=== PATIENT | male | born 1980 | race Caucasian/White ===

== ENCOUNTER 2018-06-09 22:39 | Emergency (ER) | payer OTHER ==
[~2018-06-09] VITALS: BP_SYST 141; Ht 175.3 cm; Wt 72.6 kg
[2018-06-09 22:40] VITALS: BP_SYST 140
[2018-06-09 22:42] VITALS: BP_SYST 140
== END 2018-06-09 22:55 ==
LOC: SED 22:39
DX: Z02.89 Encounter for other administrative examinations (principal)

== ENCOUNTER 2021-03-23 17:51 | Emergency (ER) | payer MEDICAID, OTHER ==
[~2021-03-23] VITALS: Ht 175.3 cm; Wt 95.3 kg
[2021-03-23 17:51] VITALS: BP_SYST 152
[2021-03-23] MEDS ORDERED: predniSONE 20 MG TABLET PO ONE (18:00)
[2021-03-23] MEDS ORDERED: FAMOTIDINE 20 MG TABLET PO ONE (18:00)
[2021-03-23] MEDS ORDERED: EPINEPHrine 1 MG/ML AMP IM ONE (18:00)
[2021-03-23] MEDS ORDERED: EPIN0.3P3 IM (19:08)
[2021-03-23 19:21] VITALS: BP_SYST 145
== END 2021-03-23 19:21 | disposition home or self-care (01) ==
LOC: SED 17:51
DX: L50.9 Urticaria, unspecified (principal); Z79.899 Other long term (current) drug therapy
CPT/HCPCS: 96372; 99283; J0171; J7512